=== PATIENT | male | born 1945 | race Caucasian/White ===

== ENCOUNTER → 2020-02-10 10:14 | Outpatient (CLI) | payer OTHER, SELFPAY ==
[2020-02-11 16:07] LABS: Prostate Specific Antigen 1.07 ng/mL (0.10-4.00)
== END ==
PROVIDERS: PCP Family Medicine; Referring Provider Specialist; Visit Provider Specialist
DX: R97.20 Elevated prostate specific antigen [PSA] (principal)
CPT/HCPCS: 36415; 84153